=== PATIENT | female | born 1970 | race Caucasian/White ===

== ENCOUNTER 2017-02-03 05:41 | Emergency (ER) | payer BC ==
[~2017-02-03] VITALS: Ht 162.6 cm; Wt 127.3 kg
[~2017-02-03 05:41] MED LIST: CALCIUM WITH D1 CTB PO; CLARITIN 1010 MG/TAB PO; EXCEDRIN MIGRAI1 TAB PO; GABAPENTIN PO; GABAPENTIN300 M1 PO; KENALOG0.11 TP; LASIX 20MG TABL20 MG PO; LYRICA 50MG CAP50 MG PO; NASONEX SPRAY17 GM NS; SINGULAIR10 MG PO; TEGRETOL 2200 MG/TA1 PO; TEGRETOL PO; XYAL5 MG PO; [UNRECOGNIZED DRUG - REMARK]
[2017-02-03 06:15] LABS: BASO % 0.7 % (0.0-2.0); EOS % 0.3 % (0-4.0); GRAN # 4.5 (1.4-6.5); GRAN % 75.7 % (42.2-75.2); HEMATOCRIT 42.7 % (37.0-47.0); HEMOGLOBIN 13.8 g/dl (12.5-16.0); LYMPH # 0.6 (1.2-3.4); LYMPH % 10.6 % (20.0-51.0); MEAN CELL VOLUME 91 fl (80.0-100.0); MEAN CORPUSCULAR HEMOGLOBIN 29 pg (27.0-31.0); MEAN CORPUSCULAR HGB CONC 32 g/dl (33.0-37.0); MEAN PLATELET VOLUME 9.1 fl (7.4-10.4); MONO # 0.7 (0.1-0.6); MONO % 12.2 % (1.7-9.3); PLATELET COUNT 259 K/mm3 (130-400); RED BLOOD COUNT 4.72 M/mm3 (4.10-5.30)
[2017-02-03 06:34] LABS: ADJUSTED CALCIUM 8.1 mg/dL (8.4-10.2); ALBUMIN 4.3 gm/dL (3.5-5.0); BILIRUBIN,TOTAL 0.4 mg/dL (0.0-1.0); CALCIUM 8.3 mg/dL (8.4-10.2); CREATININE, serum 0.9 mg/dL (0.52-1.25); POTASSIUM 3.4 mmol/L (3.4-5.0); TOTAL PROTEIN 7.3 gm/dL (6.4-8.2)
[2017-02-03 06:39] LABS: INFLUENZA A POSITIVE; INFLUENZA B NEGATIVE
[2017-02-03] MEDS ORDERED: TAMIFLU 75MG75 MG PO (06:52)
[2017-02-03] MEDS ORDERED: PHENERGAN 25 TA25 MG PO (06:52)
[2017-02-03 08:19] VITALS: TEMP 99.4
[2017-02-03 09:50] VITALS: BP 107/59; PULSE 88
== END 2017-02-03 09:50 | disposition home or self-care (01) ==
LOC: COL.ER 05:41
PROVIDERS: Emergency Medicine
DX: J09.X2 Influenza due to identified novel influenza A virus with other respiratory manifestations (principal); R42 Dizziness and giddiness; Z90.49 Acquired absence of other specified parts of digestive tract; Z90.710 Acquired absence of both cervix and uterus
CPT/HCPCS: J2060; J2550; J7030

== ENCOUNTER 2017-02-16 06:54 | Emergency (ER) | payer BC ==
[~2017-02-16] VITALS: Ht 12.7 cm; Wt 127.3 kg
[~2017-02-16 06:54] MED LIST changes: +PHENERGAN 25 TA25 MG PO; +TAMIFLU 75MG75 MG PO
[2017-02-16 06:58] VITALS: TEMP 98.3
[2017-02-16 07:31] LABS: BASO # 0.1 (0.0-0.2); BASO % 0.9 % (0.0-2.0); EOS # 0.1 (0.0-0.7); EOS % 1.7 % (0-4.0); GRAN # 3.4 (1.4-6.5); GRAN % 63.7 % (42.2-75.2); HEMATOCRIT 40.5 % (37.0-47.0); HEMOGLOBIN 12.9 g/dl (12.5-16.0); LYMPH # 1.4 (1.2-3.4); LYMPH % 26.1 % (20.0-51.0); MEAN CELL VOLUME 93 fl (80.0-100.0); MEAN CORPUSCULAR HEMOGLOBIN 30 pg (27.0-31.0); MEAN CORPUSCULAR HGB CONC 32 g/dl (33.0-37.0); MEAN PLATELET VOLUME 9.1 fl (7.4-10.4); MONO # 0.4 (0.1-0.6); MONO % 6.7 % (1.7-9.3); PLATELET COUNT 356 K/mm3 (130-400); RED BLOOD COUNT 4.38 M/mm3 (4.10-5.30); REDCELL DISTRIBUTION WIDTH-CV 12.7 % (11.5-14.5)
[2017-02-16 07:44] LABS: ALANINE AMINOTRANSFERASE 29 U/L (9-52); ALBUMIN 4.2 gm/dL (3.5-5.0); ALKALINE PHOSPHATASE 132 U/L (50-136); ANION GAP 12 mmol/L (7-16); AST,SGOT 21 U/L (15-37); BILIRUBIN,TOTAL 0.2 mg/dL (0.0-1.0); BLOOD UREA NITROGEN 14 mg/dL (7-17); CALCIUM 8.3 mg/dL (8.4-10.2); CARBON DIOXIDE 20 mmol/L (22-30); CHLORIDE 112 mmol/L (98-107); CREATININE, serum 0.79 mg/dL (0.52-1.25); GLUCOSE 203 mg/dL (74-106); LIPASE 88 U/L (23-300); MAGNESIUM 1.8 mg/dL (1.6-2.3); PHOSPHOROUS 2.2 mg/dL (2.5-4.5); POTASSIUM 3.8 mmol/L (3.4-5.0); SODIUM 143 mmol/L (137-145); TOTAL PROTEIN 7.1 gm/dL (6.4-8.2)
[2017-02-16 07:51] LABS: COLLECTION METHOD CLEAN CATCH
[2017-02-16 08:07] LABS: TROPONIN-I < 0.012 ng/mL (0.000-0.034)
[2017-02-16 08:18] LABS: PH 6 (5-8); URINE APPEARANCE Clear; URINE BACTERIA None Seen /hpf; URINE BILIRUBIN Negative (NEGATIVE); URINE BLOOD Negative (NEGATIVE); URINE COLOR Yellow; URINE GLUCOSE Negative (NEGATIVE); URINE KETONE Negative (NEGATIVE); URINE LEUKOCYTE ESTERASE Negative (NEGATIVE); URINE NITRATE Negative (NEGATIVE); URINE PROTEIN(semi-quant) Negative (NEGATIVE); URINE UROBILINOGEN Negative (NEGATIVE)
[2017-02-16 08:19] LABS: INFLUENZA A NEGATIVE; INFLUENZA B NEGATIVE
[2017-02-16] MEDS ORDERED: VALIUM 5MG T5 MG/TAB PO (13:57)
[2017-02-16] MEDS ORDERED: MACROBID 1100 MG/CAP PO (13:57)
[2017-02-16] MEDS ORDERED: ANTIVERT 25MG25 MG PO (13:57)
[2017-02-16 14:11] VITALS: BP 113/67; PULSE 85
== END 2017-02-16 14:23 | disposition home or self-care (01) ==
LOC: COL.ER 06:54
PROVIDERS: Emergency Medicine
DX: R42 Dizziness and giddiness (principal); Z90.710 Acquired absence of both cervix and uterus; Z86.69 Personal history of other diseases of the nervous system and sense organs
CPT/HCPCS: A9585; J0610; J2060; J2550; J7030

== ENCOUNTER 2020-03-11 16:12 | Observation (INO) | payer OTHER ==
[~2020-03-11] VITALS: Ht 165.1 cm; Wt 128.6 kg
[~2020-03-11 16:12] MED LIST changes: +ANTIVERT 25MG25 MG PO; +MACROBID 1100 MG/CAP PO; +VALIUM 5MG T5 MG/TAB PO
[2020-03-11 16:56] LABS: BASO % 0.5 % (0.0-2.0); EOS # 0.1 (0.0-0.7); GRAN # 4.3 (1.4-6.5); GRAN % 69.1 % (42.2-75.2); HEMATOCRIT 39.4 % (37.0-47.0); LYMPH # 1.4 (1.2-3.4); LYMPH % 22.3 % (20.0-51.0); MEAN CELL VOLUME 86 fl (80.0-100.0); MEAN CORPUSCULAR HEMOGLOBIN 29 pg (27.0-31.0); MEAN CORPUSCULAR HGB CONC 33 g/dl (33.0-37.0); MEAN PLATELET VOLUME 8.3 fl (7.4-10.4); MONO # 0.4 (0.1-0.6); MONO % 6.6 % (1.7-9.3); PLATELET COUNT 361 K/mm3 (130-400); RED BLOOD COUNT 4.56 M/mm3 (4.10-5.30); REDCELL DISTRIBUTION WIDTH-CV 12.6 % (11.5-14.5)
[2020-03-11 17:02] LABS: ANION GAP 8 mmol/L (7-16); BLOOD UREA NITROGEN 6 mg/dL (7-17); CALCIUM 8.5 mg/dL (8.4-10.2); CARBON DIOXIDE 26 mmol/L (22-30); CHLORIDE 95 mmol/L (98-107); GLUCOSE 119 mg/dL (74-106); PHOSPHOROUS 3.4 mg/dL (2.5-4.5); POTASSIUM 4.1 mmol/L (3.4-5.0); SODIUM 129 mmol/L (137-145)
[2020-03-11 18:53] LABS: CARBAMAZEPINE (TEGRETOL) > 20.0 ug/mL (4.0-12.0); PHENYTOIN (DILANTIN) < 3.0 ug/mL (10.0-20.0)
[2020-03-11] MEDS ORDERED: KLONOPIN 0.5MG0.5 MG (21:09)
[2020-03-11] MEDS ORDERED: DILANTIN 100MG100 MG PO ×2 (21:10→21:11)
[2020-03-11] MEDS ORDERED: GRALISE600 MG PO (21:12)
[2020-03-11] MEDS ORDERED: ELAVIL100 MG PO (21:13)
--- NOTE | 2020-03-11 23:47 | NUR ---
Patient arrives to ICU bed 6 via ED wheelchair. Patient able to ambulate with standby assistance to the ICU bed. Initial vitals within normal limits. Patient denies any pain or discomfort. Ambulates to bed side commode also with standby assistance. No skin issues noted. KUSHAL Henderson, notified of arrival. No further needs noted at this time.
[2020-03-12] VITALS (358 sets, daily range): BP systolic 125–176; BP diastolic 67–100; PULSE 94–125; TEMP 97.7–98.8; O2SAT 85–99
--- NOTE | 2020-03-12 00:30 | NUR ---
Patient's home medications sent with supervisor tank house, Jennifer, to pharmacy.
[2020-03-12] MEDS ORDERED: ULTRAM 50MG TAB50 MG PO (00:41)
[2020-03-12 07:01] LABS: BASO % 0.5 % (0.0-2.0); EOS # 0.1 (0.0-0.7); EOS % 0.9 % (0-4.0); GRAN # 4.4 (1.4-6.5); GRAN % 67.9 % (42.2-75.2); HEMOGLOBIN 11.7 g/dl (12.5-16.0); LYMPH # 1.5 (1.2-3.4); LYMPH % 22.8 % (20.0-51.0); MEAN CELL VOLUME 86 fl (80.0-100.0); MEAN CORPUSCULAR HEMOGLOBIN 28 pg (27.0-31.0); MEAN CORPUSCULAR HGB CONC 33 g/dl (33.0-37.0); MEAN PLATELET VOLUME 8.1 fl (7.4-10.4); MONO # 0.5 (0.1-0.6); MONO % 7.3 % (1.7-9.3); PLATELET COUNT 293 K/mm3 (130-400); RED BLOOD COUNT 4.13 M/mm3 (4.10-5.30); REDCELL DISTRIBUTION WIDTH-CV 12.5 % (11.5-14.5)
[2020-03-12 07:10] LABS: CALCIUM 8.1 mg/dL (8.4-10.2); CREATININE, serum 0.57 (0.52-1.25); POTASSIUM 3.9 mmol/L (3.4-5.0)
[2020-03-12 07:22] LABS: HEMATOCRIT 35.6 % (37.0-47.0)
--- NOTE | 2020-03-12 09:33 | NUR ---
Initial visit; Patient thanked Planning Technician for looking in on her though declined spiritual care.
--- NOTE | 2020-03-12 10:51 | NUR ---
Cold Working Supervisor attended clinical rounds. After rounds, SW met with the patient to complete intake. The patient lives in alone in [place]. The patient uses a cane or walker as needed. The patient is independent with ADLs. The patient's PCP is Dr. Montes De Oca and patient receives medications from [facility]. The patient does not have advanced directives in the EMR. The patient does not have any children and is not . The patient's parents live locally. The patient was interested in DPOA-HC form. Form provided. The plan is to return home at discharge. PT ordered. Neurology consulted.
--- NOTE | 2020-03-12 12:56 | NUR ---
DR. LOERA AT BEDSIDE SPEAKING WITH PT.
--- NOTE | 2020-03-12 16:45 | NUR ---
PT IS TEARFUL, STATES SHE IS IN SEVERE PAIN TO HER RIGHT SIDE OF FACE. STATES "I CAN'T EAT OR DRINK." PRN VALIUM ADMINISTERED PER EMAR. WILL CONTINUE TO MONITOR.
--- NOTE | 2020-03-12 17:00 | NUR ---
Patient arrived to room 357 from ICU around this time, alert/oriented, vitals stable, denies pain, transferred to bed with stand by assist, denies needs at this time, call light in reach
--- NOTE | 2020-03-12 17:30 | NUR ---
PT TRANSFERRED TO ROOM 356 VIA W/C ON RA. PT TRANSFERRED SELF STANBY ASSIST TO BED. PT TRANSFERRED WITH TELEMETRY. KAILASH SÁNCHEZ TO BEDSIDE.
--- NOTE | 2020-03-12 17:30 | NUR ---
Patient transfeered to room 356 from ICu at this time, alert/oriented, VSS, reporting pain to her face 09/25, discussed plan of care, she denies needs at this time
--- NOTE | 2020-03-12 19:05 | NUR ---
Received report from Neto. She is alert and oriented. She is complaining of pain on her right face/jaw. Will give her night medicines earlier. Instructed patient that we need a sample of urine and stool. With IV on right wrist with NS at 75ml/hr and INT on right AC.
--- NOTE | 2020-03-12 20:15 | NUR ---
Patient still complains of pain on her right face with pain score of 10/10. She was asking if we will give her the medicine that Dr. Petit ordered which is Baclofen. Upon checking there are no orders for Baclofen but it was in the progress notes that he was planning an option to start patient on Baclofen. Called Sarah MUIR to ask if patient can have the Baclofen for her pain and she placed an order for now dose of Baclofen.
[2020-03-12 20:50] LABS: COLLECTION METHOD CLEAN CATCH
[2020-03-12 21:09] LABS: PH 7 (5-8); SQUAMOUS EPITHELIAL 0-2 /hpf; URINE APPEARANCE Clear; URINE BACTERIA None Seen /hpf; URINE BILIRUBIN Negative (NEGATIVE); URINE BLOOD 1+ (NEGATIVE); URINE COLOR Straw; URINE GLUCOSE Negative (NEGATIVE); URINE KETONE Negative (NEGATIVE); URINE LEUKOCYTE ESTERASE Negative (NEGATIVE); URINE NITRATE Negative (NEGATIVE); URINE PROTEIN(semi-quant) Negative (NEGATIVE); URINE RBC 0-2 /hpf; URINE UROBILINOGEN Negative (NEGATIVE)
--- NOTE | 2020-03-13 00:20 | NUR ---
Called Sarah MUIR to ask if patient can have other pain medicine since she is still complaining of pain, with pain score of 9/10. She said that since the patient was taking Tramadol as her home medicines, she will just put an order to continue that.
[2020-03-13 02:15] LABS: CLOSTRIDIUM DIFF A/B NEG; CLOSTRIDIUM DIFF A/B INTERP No C.diff present
[2020-03-13 04:23] VITALS: BP 155/89; PULSE 107; TEMP 97.5
--- NOTE | 2020-03-13 06:31 | NUR ---
Patient still with pain on her right jaw. Tramadol given at 0619H, with pain score of 9/10. She is requesting for Valium as well.
[2020-03-13 08:28] VITALS: BP 157/103; PULSE 115; TEMP 98.1
--- NOTE | 2020-03-13 10:38 | NUR ---
Assessment complete. Patient sitting up on side of bed on entry, informed her that it was too early for more pain medication at this time but ensured her that I will requested something else due to her pain level. She became tearful as I was helping her out of bed stating that her pain was 10/10. She took her PO medications well. After assessment I called Yane MUIR to inform her and provider of intense pain 10/10, this was at 0936. Still currently awaiting orders. IVF continue to run at this time. Will continue to monitor. Call light is in reach.
[2020-03-13 12:11] LABS: CALCIUM 9.1 mg/dL (8.4-10.2); CREATININE, serum 0.65 (0.52-1.25)
[2020-03-13 12:19] VITALS: BP 157/93; PULSE 105; TEMP 97.2
[2020-03-13 16:09] VITALS: BP 180/97; PULSE 114; TEMP 99
--- NOTE | 2020-03-13 18:08 | NUR ---
Patient has not had a good day. Pain from this morning did not subside despite new order from provider. Providers were notified again when patient continued to rate pain 10/10 after baclofen and tramadol. Tegretol was restarted after provider notification. warm pack was provided to patient for her face as she stated any touch to her face feels like needles, this was not helpful. Patient has beem tearful and minimally conversational all day, but understands we are attempting to relieve her pain. Patient remains shakey in hands and in gait while ambulating. IVF continue to run. COntinuing to monitor. Call light is in reach.
--- NOTE | 2020-03-13 19:08 | NUR ---
Received report from Roula. Seen patient awake in bed. She is teary eyed because of her pain on the right side of face. Informed her that I will give her night medicines early which includes her Baclofen and Tegretol.
[2020-03-13 20:15] VITALS: PULSE 115; TEMP 98.7
[2020-03-13 20:32] VITALS: BP 159/89
[2020-03-14 00:25] VITALS: BP 158/65; PULSE 116; TEMP 99.1
[2020-03-14 03:55] VITALS: BP 149/85; PULSE 100; TEMP 98.2
--- NOTE | 2020-03-14 06:16 | NUR ---
Patient still with pain on her right face. Tramadol last given at 0400H. She had been crying most of the time because of pain. She said there are times when she don't feel pain and then all of a sudden it will be severe pain. Still with complains of dizziness. Valium given.
--- NOTE | 2020-03-14 07:00 | NUR ---
Report received from KAILASH Nicole. Upon entry pt in bed sobbing audibly from pain in R face that is sharp. Pt c/o frustration with holding tegretol from toxic levels. Will continue ot monitor.
[2020-03-14 08:05] VITALS: BP 162/105; PULSE 104; TEMP 98.1
--- NOTE | 2020-03-14 08:16 | NUR ---
Pt c/o pain at 10/10 to R face, am meds given to assist with pain, pt does not want any other measures at this time. IVF to RW, INT to RA/C. Continues to express frustration with previous hold on tegretol, explained need to get levels below critical before restarting but she feels it should have been tapered down. Will pass on to hopsitalist and ocntinue to monitor.
[2020-03-14 08:43] LABS: CALCIUM 8.8 mg/dL (8.4-10.2); CREATININE, serum 0.61 (0.52-1.25); POTASSIUM 3.8 mmol/L (3.4-5.0)
[2020-03-14 15:53] VITALS: BP 176/104; PULSE 103; TEMP 98.4
--- NOTE | 2020-03-14 18:57 | NUR ---
Called pts mother per her request this afternoon and provided update. Updated pt of this and told her that dr. Foster called [facility] per Petit's request. Pt has been tearful off and on all shift, lowest pain araiting in face is 9/10 with all PRNs given, drs aware. Will give bedside shift report to nightshift nurse who will resume care.
[2020-03-14 19:56] VITALS: BP 176/102; PULSE 113; TEMP 98.1
[2020-03-15 00:11] VITALS: BP 150/84; PULSE 125; TEMP 98.6
--- NOTE | 2020-03-15 02:27 | NUR ---
REPORT RECIEVED FROM PREVIOUS RN. PATIENT IS STILL IN PAIN AND WANTS TO TAKE TRAMADOL SOON IT IS DUE. CALL LIGHT IS WITHIN REACH OF PATIENT. WILL CONTINUE TO MONITOR.
[2020-03-15 03:26] VITALS: BP 149/101; PULSE 108; TEMP 98.4
[2020-03-15 05:10] VITALS: BP 172/72
--- NOTE | 2020-03-15 05:29 | NUR ---
PATIENT SLEPT MOST OF THE NIGHT. RATED PAIN AT AN 8 EARLY THIS MORNING AND GAVE HER A TRAMADOL. VITALS STABLE THROUGHOUT NIGHT.
[2020-03-15 07:28] VITALS: BP 141/104; PULSE 99; TEMP 97.8
--- NOTE | 2020-03-15 07:58 | NUR ---
Patient alert and oriented, teary complain of 7/10 pain on right side of the face. patient able to rotate self on bed, patient advise to constantly rotate sides on the bed. patient request RN to constantly update mother on any new development, POC. pt resting in bed at this time
[2020-03-15 11:30] VITALS: BP 177/90; PULSE 99; TEMP 97.9
--- NOTE | 2020-03-15 14:33 | NUR ---
patient continue to complain of pain on her right side. IVF discontinued. Patient resting in bed at this time. no new concern. call light within reach.
--- NOTE | 2020-03-15 15:11 | NUR ---
The patient is to transfer to [facility] today, 03/15. No additional needs at this time.
[2020-03-15 16:20] VITALS: BP 177/90; PULSE 99; TEMP 97.9
--- NOTE | 2020-03-15 16:38 | NUR ---
Dr Vines ordered to transfer patient to [facility] to Dr Santa. RN gave report to KAILASH South in [facility]. RN called patient's mother as requested by the patient. Home medications(Tramadol, gabapentin, phenytoin, carbamazepine, clonazepam, amitriptyline) was transfered with patient. Receiving nurse was informed of patient's home medications. right wrist INT in place. Patient transferred.
== END 2020-03-15 16:30 | disposition short-term general hospital (02) ==
LOC: COL.ER 16:12 → ICU 19:04 → MEDICAL 19:04
PROVIDERS: Emergency Medicine; Nurse Practitioner Primary Care; Physician Assistant; ADMIT Hospitalist
DX: T42.1X4A Poisoning by iminostilbenes, undetermined, initial encounter (principal); G50.0 Trigeminal neuralgia; E87.1 Hypo-osmolality and hyponatremia; G47.33 Obstructive sleep apnea (adult) (pediatric); G43.909 Migraine, unspecified, not intractable, without status migrainosus; Z20.828 Contact with and (suspected) exposure to other viral communicable diseases; Z90.710 Acquired absence of both cervix and uterus; Z90.721 Acquired absence of ovaries, unilateral
CPT/HCPCS: 99233-AI; 99239; G0378; J2060; J3360; J7030; Q2009

== ENCOUNTER 2020-03-21 05:36 | Emergency (ER) | payer OTHER ==
[~2020-03-21] VITALS: Ht 165.1 cm; Wt 126.8 kg
[~2020-03-21 05:36] MED LIST changes: +DILANTIN 100MG100 MG PO; +ELAVIL100 MG PO; +GRALISE600 MG PO; +KLONOPIN 0.5MG0.5 MG; +ULTRAM 50MG TAB50 MG PO
[2020-03-21 05:40] VITALS: BP 142/88; PULSE 94; TEMP 97.6
== END 2020-03-21 06:08 | disposition home or self-care (01) ==
LOC: COL.ER 05:36
DX: G89.29 Other chronic pain (principal)

== ENCOUNTER → 2020-11-16 | Outpatient (CLI) | payer SELFPAY | LOC: ZCOL.LAB 10:43 | DX: Z20.822 Contact with and (suspected) exposure to COVID-19 (principal) ==

== ENCOUNTER → 2021-09-04 | Outpatient (CLI) | payer MEDICARE | LOC: COL.RAD 09:51 | DX: E04.2 Nontoxic multinodular goiter (principal); R42 Dizziness and giddiness | CPT/HCPCS: Q9967 ==